=== PATIENT | female | born 1990 | race Caucasian/White ===

== ENCOUNTER 2021-04-28 12:04 | Inpatient (IN) | payer MEDICAID ==
[~2021-04-28] VITALS: Ht 170.2 cm; Wt 81.2 kg
[2021-04-28 13:54] LABS: COVID AG,FIA SOURCE NASOPHARYNGEAL
[2021-04-28 13:56] LABS: BASOPHILS % (AUTO) 0.5 % (0.0-2.0); EOSINOPHILS % (AUTO) 0.5 % (1.0-6.0); HEMOGLOBIN 12.3 g/dL (12.0-16.0); LYMPHOCYTES # (AUTO) 1.6 K/uL (1.0-4.8); LYMPHOCYTES % (AUTO) 21.4 % (22.0-44.0); MEAN CORPUSCULAR HGB CONC 32.5 G/dL (31.0-37.0); MEAN CORPUSCULAR VOLUME 83 fL (80-100); MONOCYTES # (AUTO) 0.7 K/uL (0.1-1.0); MONOCYTES % (AUTO) 9.9 % (2.0-9.0); NEUTROPHILS # (AUTO) 5.1 K/uL (1.8-7.7); NEUTROPHILS % (AUTO) 67.7 % (40.0-70.0); PLATELET COUNT (AUTO) 383 K/uL (150-450); RED BLOOD CELL COUNT(AUTO) 4.57 MIL/uL (4.00-5.20); RED CELL DISTRIBUTION WIDTH 15.7 % (11.5-14.5)
[2021-04-28 14:06] LABS: ANION GAP 13 mmol/L (8-16); CALCIUM, TOTAL 8.7 mg/dL (8.8-10.5); CARBON DIOXIDE 24 mmol/L (22-29); CHLORIDE 102 mmol/L (98-107); CREATININE 1.23 mg/dL (0.60-1.30); GLOMERULAR FILTR. RATE CALC 51 mL/min (>60); GLUCOSE,RANDOM 99 mg/dL (70-110); POTASSIUM 3.4 mmol/L (3.5-5.1); SODIUM SERUM 139 mmol/L (136-145); UREA NITROGEN, BLOOD 27 mg/dL (7-18)
[2021-04-28 14:16] LABS: ALANINE AMINOTRANSFERASE 17 U/L (12-78); ALBUMIN 3.6 g/dL (3.4-5.0); ALKALINE PHOSPHATASE 58 U/L (46-116); ASPARTATE AMINOTRANSFERASE 21 U/L (15-37); BILIRUBIN,TOTAL 0.6 mg/dL (0.1-1.0); HCG,QUANTITATIVE < 1 mIU/mL (0-6)
[2021-04-28] MEDS ORDERED: ZOLPIDEM TARTRATE 10 MG TABLET PO PRN (15:00)
[2021-04-28] MEDS: HALOPERIDOL 5 MG TABLET PO PRN (15:41)
[2021-04-28] MEDS: LORazepam 2 MG TABLET PO PRN (15:41)
[2021-04-28 19:43] VITALS: BP 100/63
[2021-04-28] MEDS ORDERED: INFLUENZA VIRUS VACCINE QVS 2021-22 (6MO+)/PF 60 MCG/0.5 ML SYRINGE IM. ONE (20:45)
[2021-04-29 00:43] VITALS: BP 110/69
[2021-04-29 08:12] VITALS: BP 114/71
[2021-04-29] MEDS: HALOPERIDOL 5 MG TABLET PO PRN (08:43)
[2021-04-29] MEDS: LORazepam 2 MG TABLET PO PRN (08:43)
[2021-04-29] MEDS ORDERED: GABAPENTIN 400 MG CAPSULE PO SCH (13:00)
[2021-04-29] MEDS ORDERED: MAG HYDROX/AL HYDROX/SIMETH ES 30 ML SUSPENSION UDCUP PO PRN (15:45)
[2021-04-29] MEDS ORDERED: ACETAMINOPHEN 325 MG TABLET PO PRN (15:45)
[2021-04-29] MEDS ORDERED: CloNIDine HCL 0.1 MG TABLET PO PRN (15:45)
[2021-04-29] MEDS ORDERED: ALBUTEROL SULFATE HFA 90 MCG/PUFF 8 GM INHALER IH PRN (15:45)
[2021-04-29] MEDS ORDERED: NICOTINE 14 MG/24 HOUR PATCH TD PRN (15:45)
[2021-04-29] MEDS ORDERED: PETROLATUM,WHITE 28 GM JELLY TP PRN (15:45)
[2021-04-29] MEDS ORDERED: IBUPROFEN 400 MG TABLET PO PRN (15:45)
[2021-04-29] MEDS ORDERED: MAGNESIUM HYDROXIDE SUSPENSION 30 ML UDCUP PO PRN (15:45)
[2021-04-29] MEDS ORDERED: GuaiFENesin/D-METHORPHAN [SUGAR-FREE] 200-20MG/10 ML SYRUP UDCUP PO PRN (15:45)
[2021-04-29] MEDS ORDERED: ONDANSETRON HCL 4 MG TABLET PO PRN (15:45)
[2021-04-29] MEDS ORDERED: LOPERAMIDE HCL 2 MG CAPSULE PO PRN (15:45)
[2021-04-29] MEDS ORDERED: DOCUSATE SODIUM 100 MG CAPSULE PO PRN (15:45)
[2021-04-29 16:35] VITALS: BP 118/67
[2021-04-29] MEDS ORDERED: QUEtiapine FUMARATE 300 MG TABLET PO SCH (21:00)
[2021-04-29] MEDS: QUEtiapine FUMARATE 100 MG TABLET PO SCH (21:09)
[2021-04-30 00:45] VITALS: BP 112/74
[2021-04-30 07:20] LABS: CHOL/HDL RATIO 3.3 (3.9-5.7); FREE T4 (FREE THYROXINE) 1.31 ng/dL (0.76-1.46); THYROID STIMULATING HORMONE 0.47 uIU/mL (0.36-3.74)
[2021-04-30] MEDS: QUEtiapine FUMARATE 25 MG TABLET PO SCH (08:30)
[2021-04-30] MEDS: LORazepam 2 MG TABLET PO PRN (08:30)
[2021-04-30 08:55] VITALS: BP 121/73
[2021-04-30 16:13] VITALS: BP 100/62
[2021-04-30] MEDS: QUEtiapine FUMARATE 100 MG TABLET PO SCH (20:44)
[2021-05-01 00:13] VITALS: BP 112/65
[2021-05-01] MEDS: LORazepam 2 MG TABLET PO PRN ×2 (08:14→16:20)
[2021-05-01] MEDS: QUEtiapine FUMARATE 25 MG TABLET PO SCH (08:14)
[2021-05-01 08:44] VITALS: BP 118/79
[2021-05-01 16:14] VITALS: BP 103/69
[2021-05-01] MEDS: QUEtiapine FUMARATE 100 MG TABLET PO SCH (21:09)
[2021-05-02 00:41] VITALS: BP 112/77
[2021-05-02 08:08] VITALS: BP 110/66
[2021-05-02] MEDS: LORazepam 2 MG TABLET PO PRN (08:26)
[2021-05-02] MEDS: QUEtiapine FUMARATE 25 MG TABLET PO SCH (08:26)
[2021-05-02 16:21] VITALS: BP 122/94
[2021-05-02] MEDS: QUEtiapine FUMARATE 100 MG TABLET PO SCH (20:31)
[2021-05-03 05:39] VITALS: BP 116/76
[2021-05-03] MEDS: QUEtiapine FUMARATE 25 MG TABLET PO SCH (09:11)
[2021-05-03] MEDS: LORazepam 2 MG TABLET PO PRN (15:09)
[2021-05-03 16:39] VITALS: BP 134/72
[2021-05-03] MEDS: QUEtiapine FUMARATE 100 MG TABLET PO SCH (20:30)
[2021-05-04 05:39] VITALS: BP 114/66
[2021-05-04 08:18] VITALS: BP 110/65
[2021-05-04] MEDS: QUEtiapine FUMARATE 25 MG TABLET PO SCH (08:26)
[2021-05-04] MEDS: LORazepam 2 MG TABLET PO PRN ×2 (08:26→15:19)
[2021-05-04] MEDS ORDERED: LORazepam 2 MG/ML VIAL ONE (14:44)
[2021-05-04] MEDS ORDERED: HALOPERIDOL LACTATE 5 MG/ML VIAL ONE (14:45)
[2021-05-04] MEDS ORDERED: DiphenhydrAMINE HCL 50 MG/ML VIAL ONE (14:45)
[2021-05-04 16:21] VITALS: BP 115/64
[2021-05-04] MEDS: QUEtiapine FUMARATE 100 MG TABLET PO SCH (20:24)
[2021-05-05 06:37] VITALS: BP 112/60
[2021-05-05] MEDS: QUEtiapine FUMARATE 25 MG TABLET PO SCH (07:55)
[2021-05-05] MEDS: LORazepam 2 MG TABLET PO PRN (07:55)
[2021-05-05 16:44] VITALS: BP 108/64
[2021-05-05] MEDS: QUEtiapine FUMARATE 200 MG TABLET PO SCH (21:16)
[2021-05-06 01:13] VITALS: BP 128/77
[2021-05-06] MEDS: QUEtiapine FUMARATE 100 MG TABLET PO SCH (08:23)
[2021-05-06] MEDS: LORazepam 2 MG TABLET PO PRN (08:23)
[2021-05-06 08:29] VITALS: BP 100/60
[2021-05-06 08:35] VITALS: BP 116/68
[2021-05-06 16:28] VITALS: BP 94/61
[2021-05-06] MEDS: QUEtiapine FUMARATE 200 MG TABLET PO SCH (21:00)
[2021-05-07 00:55] VITALS: BP 110/72
[2021-05-07] MEDS: LORazepam 2 MG TABLET PO PRN (08:18)
[2021-05-07] MEDS: QUEtiapine FUMARATE 100 MG TABLET PO SCH (08:18)
[2021-05-07 08:44] VITALS: BP 119/63
[2021-05-07 16:20] VITALS: BP 101/60
[2021-05-07] MEDS: QUEtiapine FUMARATE 200 MG TABLET PO SCH (20:51)
[2021-05-08 01:55] VITALS: BP 114/65
[2021-05-08 08:32] VITALS: BP 111/76
[2021-05-08] MEDS: QUEtiapine FUMARATE 100 MG TABLET PO SCH (08:47)
[2021-05-08] MEDS: LORazepam 2 MG TABLET PO PRN (08:53)
[2021-05-08 17:36] VITALS: BP 102/77
[2021-05-08] MEDS: QUEtiapine FUMARATE 200 MG TABLET PO SCH (20:26)
[2021-05-09 08:21] VITALS: BP 119/58
[2021-05-09] MEDS: QUEtiapine FUMARATE 100 MG TABLET PO SCH (08:30)
[2021-05-09 16:38] VITALS: BP 114/61
[2021-05-09] MEDS: QUEtiapine FUMARATE 200 MG TABLET PO SCH (21:25)
[2021-05-10 00:28] VITALS: BP 112/74
[2021-05-10 08:37] VITALS: BP 120/86
[2021-05-10] MEDS: QUEtiapine FUMARATE 100 MG TABLET PO SCH (09:38)
[2021-05-10] MEDS: LORazepam 2 MG TABLET PO PRN (16:39)
[2021-05-10 17:27] VITALS: BP 101/60
[2021-05-10] MEDS: QUEtiapine FUMARATE 200 MG TABLET PO SCH (20:55)
[2021-05-11 01:42] VITALS: BP 110/73
[2021-05-11 08:46] VITALS: BP 116/74
[2021-05-11] MEDS: QUEtiapine FUMARATE 100 MG TABLET PO SCH (09:05)
[2021-05-11 16:22] VITALS: BP 100/61
[2021-05-11] MEDS: QUEtiapine FUMARATE 200 MG TABLET PO SCH (20:06)
[2021-05-12 06:55] VITALS: BP 137/86
[2021-05-12 07:12] VITALS: BP 132/71
[2021-05-12] MEDS: QUEtiapine FUMARATE 100 MG TABLET PO SCH (08:22)
[2021-05-12 08:40] VITALS: BP 102/62
[2021-05-12 09:45] VITALS: BP 114/74
[2021-05-12] MEDS: LORazepam 2 MG TABLET PO PRN (09:49)
[2021-05-12] MEDS ORDERED: QUET100T PO (12:30)
[2021-05-12] MEDS ORDERED: QUET200T PO (12:30)
== END 2021-05-12 13:45 | disposition home or self-care (01) | DRG 750 ==
LOC: EMS 12:07 → B3A 16:09
PROVIDERS: ADMIT Psychiatry & Neurology Child & Adolescent Psychiatry; ATTEND Psychiatry & Neurology Child & Adolescent Psychiatry
DX: F25.1 Schizoaffective disorder, depressive type (principal); Z59.00 Homelessness unspecified; E87.6 Hypokalemia; K30 Functional dyspepsia; F10.10 Alcohol abuse, uncomplicated; F19.10 Other psychoactive substance abuse, uncomplicated; F31.9 Bipolar disorder, unspecified; F41.9 Anxiety disorder, unspecified; F17.210 Nicotine dependence, cigarettes, uncomplicated; Z28.21 Immunization not carried out because of patient refusal
CPT/HCPCS: 80053; 80061; 84132; 84439; 84443; 84702; 85025; 99285; G0480; J1200; J1630; J2060